=== PATIENT | male | born 1940 | race Caucasian/White ===

== ENCOUNTER → 2018-03-25 | Outpatient (CLI) | payer OTHER | LOC: FIMAGING 06:37 | PROVIDERS: ATTEND Family Medicine | DX: M51.36 Other intervertebral disc degeneration, lumbar region (principal); M43.16 Spondylolisthesis, lumbar region; M48.061 Spinal stenosis, lumbar region without neurogenic claudication ==

== ENCOUNTER 2018-05-29 05:36 | Observation (INO) | payer OTHER ==
--- NOTE | 2018-05-28 17:36 | GHP ---
[f rep st] PREOP HISTORY AND PHYSICAL ADMISSION DIAGNOSIS: Benign prostatic hyperplasia with urinary obstruction. HISTORY OF PRESENT ILLNESS: This 78-year-old gentleman who has had moderately to severely symptomatic BPH and he is to be admitted for a TURP. He has urgency and is concerned about post surgical leakage, and he has been informed of the results of urodynamics. He has had nocturia 3 times per night. AUA score was 14 originally and he had a postvoid residual that varied from 0-44. He has had a PSA of 9.52 and has declined having a biopsy. Reviewed his records and he has had prostate ultrasound that revealed a prostate gland that was a total of 45.4 g, there was an intravesical lobe and prostatic calcifications. He had a UroCuff that showed a maximum flow of 6.9 mL/sec, a maximum voiding pressure 115.8 cm of water pressure, and he had previous cystoscopy with Dr. Daley who recommended photo vaporization of the prostate. After discussion about the options of therapy being medical as well as minimally invasive procedures, he has agreed to undergo a TUR of the prostate. Indication, complications, options, risks have all been discussed. PAST MEDICAL HISTORY: He has had BPH with obstruction. PAST SURGICAL HISTORY: Achilles tendon repair, colon surgery, knee surgery, and then he had the UroCuff on 05/28/2018. MEDICATION: Flomax. ALLERGIES: None. FAMILY HISTORY: Positive for testicular cancer. SOCIAL HISTORY: Alcohol consumption daily. Former smoker. REVIEW OF SYSTEMS: Negative cardiac, respiratory, GI and endocrine. PHYSICAL EXAMINATION: VITAL SIGNS: Stable. CHEST: Clear. HEART: Regular rate and rhythm. ABDOMEN: Normal, no organomegaly, rebound or guarding. EXTREMITIES: Lower extremities are normal. At the present time, he is admitted for TUR of the prostate and he appears to be well informed on this topic. /[id number]/MODL MTDD
[2018-05-29] MEDS ORDERED: ceFAZolin 2 GM/DEXTROSE 100 ML IV ONE (06:00)
[2018-05-29] MEDS ORDERED: LR 1,000 ML IV ONE (06:01)
--- NOTE | 2018-05-29 06:49 | PDANEPAE ---
ANE Past Medical History - Cardiovascular History Hx Hypertension: No Hx Arrhythmias: No Hx Chest Pain: No Hx Coronary Artery / Peripheral Vascular Disease: No Hx CHF / Valvular Disease: No Hx Palpitations: No - Pulmonary History Hx COPD: No Hx Asthma/Reactive Airway Disease: No Hx Recent Upper Respiratory Infection: No Hx Oxygen in Use at Home: No Hx Sleep Apnea: No Sleep Apnea Screening Result - Last Documented: Negative - Neurologic History Hx Cerebrovascular Accident: No Hx Seizures: No Hx Dementia: No Neurologic History Comment: DDD. slight tingling in feet - Endocrine History Hx Diabetes: No - Renal History Hx Renal Disorders: Yes Renal History Comment: BPH. urinary retention especially after surgeries requires catheterization - Liver History Hx Hepatic Disorders: No - Neurological & Psychiatric Hx Hx Neurological and Psychiatric Disorders: No - Cancer History Hx Cancer: No - Congenital Disorder History Hx Congenital Disorders: No - GI History Hx Gastrointestinal Disorders: No - Other Health History Other Health History: wears glasses - Chronic Pain History Chronic Pain: No - Surgical History Prior Surgeries: 09/20/17 small bowel resection and exp lap with Cruz. right achilles tendon repair with Key. 03/2017 anal fissure repair with Ti. bilateral hernia repair 20 yrs ago. knee scopes ANE Review of Systems Review of Systems: - Exercise capacity METS (RN): 4 METS ANE Patient History - Allergies Allergies/Adverse Reactions: No Known Allergies Allergy (Verified 05/15/18 16:26) - Home Medications Home Medications: Tamsulosin HCl [Flomax 0.4 MG (*)] 0.4 mg PO HS 09/19/17 [Last Taken 05/25/18] Herbals/Supplements -Info Only 1 ea PO DAILY 05/13/18 [Last Taken 05/22/18] - Anes Hx Anes Hx: no prior problems - Smoking Hx Smoking Status: Former smoker - Family Anes Hx Family Hx Anesthesia Complications: none ANE Labs/Vital Signs - Vital Signs Height: 172.72 cm Weight: 59.874 kg ANE Physical Exam - Airway Neck exam: FROM Mallampati Score: Class 2 Mouth exam: normal dental/mouth exam - Pulmonary Pulmonary: clear to auscultation - Cardiovascular Cardiovascular: regular rate and rhythym - ASA Status ASA Status: II ANE Anesthesia Plan Anesthesia Plan: general endotracheal anesthesia, GA w LMA
--- NOTE | 2018-05-29 06:58 | PDHPUP ---
History & Physical Update H&P update statement: This history and physical update is based on an assessment of the patient which was completed after admission or registration (within 24 hours), but prior to the surgery/procedure. H&P update: H&P reviewed & patient examined, no change in patient's condition since H&P completed
[2018-05-29] MEDS ORDERED: MIDAZOLAM 2 MG/2 ML VIAL IVP ONE (06:59)
--- NOTE | 2018-05-29 07:00 | POSTOPPROG ---
Post Op Note Date of Operation: 05/29/18 (dictated) Surgeon: Immanuel Monique Anesthesiologist: Lise Anesthesia: LMA Pre-op Diagnosis: bph / obst Procedure: turp Inf/Abcess present in the surg proc area at time of surgery?: No EBL: Minimal Drains: Other (22 3wy pacheco with 70 ml balloon) Specimen(s): sent
[2018-05-29] MEDS ORDERED: LIDOCAINE 2% JELLY 20 ML (UROJECT) ONE (07:05)
[2018-05-29] MEDS ORDERED: fentaNYL 100 MCG/2 ML INJ ONE ×2 (07:07→09:11)
[2018-05-29] MEDS ORDERED: PROPOFOL 200 MG/20 ML VIAL ONE ×2 (07:07→07:35)
[2018-05-29] MEDS ORDERED: METOCLOPRAMIDE 10 MG/2 ML VIAL ONE (07:23)
[2018-05-29] MEDS ORDERED: LR 500 ML IV PRN (08:18)
[2018-05-29] MEDS ORDERED: ACETAMINOPHEN 500 MG TAB PO PRN (08:18)
[2018-05-29] MEDS ORDERED: oxyCODONE IR 5 MG TAB PO PRN (08:18)
[2018-05-29] MEDS ORDERED: ALBUTEROL 3 ML DEYVIAL IH PRN (08:18)
[2018-05-29] MEDS ORDERED: DIAZEPAM 5 MG/ML 1 ML SYR IVP PRN (08:18)
[2018-05-29] MEDS ORDERED: HYDROmorphONE/DILAUDID 2 MG/ML INJ IVP PRN (08:18)
[2018-05-29] MEDS ORDERED: PROMETHAZINE HCL 25 MG/ML INJ IVP PRN (08:18)
[2018-05-29] MEDS ORDERED: ONDANSETRON 4 MG/2 ML VIAL IVP PRN ×2 (08:18→08:26)
[2018-05-29] MEDS ORDERED: MEPERIDINE 25 MG/0.5 ML AMP IVP PRN (08:18)
[2018-05-29] MEDS ORDERED: NALOXONE HCL 0.4 MG/ML INJ IVP PRN (08:18)
[2018-05-29] MEDS ORDERED: ePHEDrine SULFATE 25 MG/5 ML SYR ONE (08:19)
[2018-05-29] MEDS ORDERED: ONDANSETRON 4 MG/2 ML VIAL ONE (08:19)
[2018-05-29] MEDS ORDERED: PHENYLEPHRINE HCL 100 MCG/ML SYR ONE (08:19)
[2018-05-29] MEDS ORDERED: OPIUM/BELLADONNA ALKALO SUPP PR PRN (08:25)
[2018-05-29] MEDS ORDERED: ACETAMINOPHEN 325 MG TAB PO PRN (08:26)
[2018-05-29] MEDS ORDERED: ZOLPIDEM TARTRATE 5 MG TAB PO PRN (08:26)
[2018-05-29] MEDS ORDERED: ONDANSETRON DISINTEGRATING 4 MG TAB PO PRN (08:26)
[2018-05-29] MEDS ORDERED: Herbals/Supplements -Info Only PO SCH (09:00)
[2018-05-29] MEDS ORDERED: OPIUM/BELLADONNA ALKALO SUPP PR ONE (09:02)
[2018-05-29] MEDS: fentaNYL 100 MCG/2 ML INJ IVP PRN ×2 (09:15→09:51)
--- NOTE | 2018-05-29 09:23 | GOP ---
[f rep st] OPERATIVE REPORT DATE OF OPERATION: 05/29/2018 SURGEON: Immanuel Monique MD PREOPERATIVE DIAGNOSIS: Benign prostatic hypertrophy, urinary obstruction. POSTOPERATIVE DIAGNOSIS: Benign prostatic hypertrophy, urinary obstruction PROCEDURE PERFORMED: Transurethral resection of the prostate. FINDINGS: bph. stones, trabeculated bladder DESCRIPTION OF PROCEDURE: Juan Jman underwent general anesthesia, prepped and draped in normal sterile fashion in dorsal lithotomy position, and after appropriate time-out, the scope was passed in his bladder under direct vision. He had significant bladder obstruction. TUR of the prostate was started by taking down the right lateral lobe, right portion of the posterior lobe, left lateral lobe, and left portion of the posterior lobe resected. Stones were encountered, as well as small pus pockets. At the end of the procedure, his bladder was Ellik'd free of all chips and clots. Visualization revealed no residual chips or clots. Ureteral orifices were preserved. Bladder was normal except for the +4 trabeculation noted preop and the verumontanum preserved. His bladder was filled. Coude maneuver revealed a great urine flow. A 22 three -way catheter passed into the bladder over a Mandrin guide, and 70 cc balloon inflated, traction placed. He will be admitted for postoperative care. /[id number]/MODL MTDD
[2018-05-29] MEDS ORDERED: HYDROCODONE/APAP 5/325 TAB ONE (10:40)
[2018-05-29] MEDS: HYDROCODONE/APAP 5/325 TAB PO PRN ×3 (10:42→19:54)
--- NOTE | 2018-05-29 11:22 | POSTANESTH ---
Post Anesthetic Evaluation Cardiovascular Status: Normal, Stable Respiratory Status: Normal, Stable Level of Consciousness/Mental Status: Can Participate in Eval Pain Control: Adequate, Prn Tx Ordered Nausea/Vomiting Control: Adequate, Prn Tx Ordered Complications Possibly Related to Anesthesia: None Noted
[2018-05-29] MEDS: D5W LR 1,000 ML IV SCH (19:54)
[2018-05-30] MEDS: HYDROCODONE/APAP 5/325 TAB PO PRN ×2 (00:18→04:44)
[2018-05-30] MEDS: D5W LR 1,000 ML IV SCH (04:08)
[2018-05-30 08:07] VITALS: BP 140/84
--- NOTE | 2018-05-30 09:05 | ASMTCMCOM ---
CM Note CM Note Notes: Pt's Chart Reviewed. Ulysses is a 78 yr old admitted with BPH with Urinary obstruction and urinary retention. Pt is s/p TURP w/ BPH, Stones, Trabeculated Bladder. History of Colon & Knee surgery, 05/28 UroCuff, and drinks Alcohol daily. Pt may discharge later today once medically clear and Voids. CM available for needs. PLAN: Likely Home Independently w/ Date Signed: 05/30/2018 09:04 AM Electronically Signed By:Annabella Sun
[2018-05-30] MEDS ORDERED: SENNOSIDES 1 TAB PO ONE (09:18)
--- NOTE | 2018-05-30 10:02 | GDS ---
[f rep st] DISCHARGE SUMMARY DATE OF OPERATION: 05/29/2018. PREOP DIAGNOSIS: BPH with urinary obstruction. POSTOP DIAGNOSIS: BPH with urinary obstruction. The patient was evaluated in our office and after a full exploration of his options, he elected to un dergo a transurethral resection of the prostate. He underwent this surgery without any difficulty. Catheter is being removed and he will proceed to home this afternoon either without the catheter or [facility] if he is unable to void. If he is unable to void he will follow up in our office Saturday morning for a catheter removal. Otherwise, patient is to be seen in 3 weeks. /[id number]/MODL
== END 2018-05-30 12:50 | disposition home or self-care (01) ==
LOC: F1N 05:36
PROVIDERS: ADMIT Specialist; ATTEND Specialist
PROC: 0VT08ZZ Resection of Prostate, Via Natural or Artificial Opening Endoscopic (ICD-10-PCS; principal; 2018-05-29 07:15)
DX: N40.1 Benign prostatic hyperplasia with lower urinary tract symptoms (principal); N13.8 Other obstructive and reflux uropathy; F10.99 Alcohol use, unspecified with unspecified alcohol-induced disorder; Z80.42 Family history of malignant neoplasm of prostate; Z87.891 Personal history of nicotine dependence
CPT/HCPCS: 52601; J0690; J2250; J2370; J2405; J2704; J2765; J3010